=== PATIENT | female | born 1980 | race Caucasian/White ===

== ENCOUNTER 2017-05-24 16:11 | Emergency (ER) | payer OTHER ==
[2017-05-24] MEDS ORDERED: ONDANSETRON DISINTEGRATING 4 MG TAB PO ONE (16:31)
--- NOTE | 2017-05-24 18:01 | EDPHY ---
H & P Smoking Status: Never smoked Time Seen by Provider: 05/24/17 16:23 HPI/ROS: CHIEF COMPLAINT: Head injury HISTORY OF PRESENT ILLNESS: 37-year-old female presents to the emergency department by ambulance after she collided with her skiing and complains especially of a frontal headache as well as pain in her nasal bone. She does not think that she lost consciousness. She complains of severe specially frontal headache. She did have an episode of epistaxis which she was able to control bleeding with firm direct pressure. Denies neck or back pain. Denies chest pain or difficulty breathing. Denies paresthesias in her upper or lower extremities. Denies injury to the upper or lower extremities. Denies back pain. Denies abdominal pain or vomiting. She does feel slightly nauseous. REVIEW OF SYSTEMS: Constitutional: No fever, no chills. Eyes: No double or blurry vision. ENT: Epistaxis as above. No sore throat. Respiratory: No cough, no shortness of breath. Cardiac: No chest pain. Gastrointestinal: Nausea. No abdominal pain, vomiting or diarrhea. Genitourinary: No dysuria. Musculoskeletal: No neck or back pain. Skin: No rashes. Neurological: headache. (Lizett Lozano) Past Medical/Surgical History: Negative (CarrieLizett mccormick M) Social History: Negative (CarrieLizett mccormick M) Physical Exam: General Appearance: Alert, no distress. 37.2, Mentating normally and answering questions appropriately. Eyes: Pupils equal and round. Extraocular motions are all intact. ENT: Mouth: Mucous membranes moist. Tender to palpate left nasal bone. Superficial abrasion to the anterior aspect of the nose. No hemotympanum. No dental injury or malocclusion. Respiratory: No wheezing, rhonchi, or rales, lungs are clear to auscultation. Cardiovascular: Regular rate and rhythm. Gastrointestinal: Abdomen is soft and nontender, no masses, no rebound or guarding, bowel sounds normal. Neurological: Alert and oriented x 3, cranial nerves II through XII grossly intact Skin: Warm and dry, no rashes. Musculoskeletal: Nontender to palpate along the cervical, thoracic or lumbar spine. Neck is supple. Extremities: Full range of motion and no peripheral edema. Psychiatric: Patient is oriented X 3, there is no agitation. (Rosin,Lizett M) Constitutional: Initial Vital Signs Temperature (C) 37.2 C 05/24/17 16:19 Heart Rate 96 05/24/17 16:19 Respiratory Rate 18 05/24/17 16:19 Blood Pressure 103/78 05/24/17 16:19 O2 Sat (%) 97 05/24/17 16:19 O2 Delivery Mode Room Air Allergies/Adverse Reactions: No Known Allergies Allergy (Unverified 05/24/17 16:19) Home Medications: Medication Instructions Recorded NK [No Known Home Meds] 05/24/17 Medical Decision Making ED Course/Re-evaluation: I took over the care of this patient at 5:00 p.m.. We are awaiting results of head CT. 7:05 p.m., results of CT scan of head discussed with the patient. Please see radiologist's report as above. Repeat neurologic Assessment is nonfocal. She feels comfortable going home and I feel she is safe for discharge. I discussed head injury precautions. I discussed ENT follow-up. Return to emergency department precautions were reviewed thoroughly with her. All of her questions were answered. She was discharged in good condition. (Annie Woodson) 37-year-old female presents to the emergency department with closed head injury. The patient complains of severe frontal headache. She feels nauseous. She is photophobic. She is also complaining of pain in her left zygomatic arch area. Clinically I think she likely has a nasal bone fracture. I discussed the pros and cons of CT imaging of her brain including radiation exposure the patient agrees with CT scan. Case will be turned over to Dr. Annie Woodson for CT imaging results and disposition and plan. (Lizett Lozano) Differential Diagnosis: Head injury including but not limited to concussion, skull fracture, intraparenchymal contusion, subarachnoid, subdural and epidural hematoma. (Lizett Loznao) - Data Points Medications Given: Discontinued Medications Ondansetron HCl (Zofran Odt) 4 mg PO EDNOW ONE Stop: 05/24/17 16:32 Last Admin: 05/24/17 16:32 Dose: 4 mg Departure - Departure Disposition: Home, Routine, Self-Care Clinical Impression: Facial contusion Qualifiers: Encounter type: initial encounter Qualified Code(s): S00.83XA - Contusion of other part of head, initial encounter Head injury Qualifiers: Encounter type: initial encounter Qualified Code(s): S09.90XA - Unspecified injury of head, initial encounter Nasal bone fracture Qualifiers: Encounter type: initial encounter Fracture type: closed Qualified Code(s): S02.2XXA - Fracture of nasal bones, initial encounter for closed fracture Condition: Good Instructions: Concussion (ED), Head Injury (ED), Facial Contusion (ED) Additional Instructions: Avoid any activity that might put you at risk for another head injury for at least 1 week Return to the emergency department if he developed recurring headache, vomiting , altered mental status, or if you feel worse in any way. Follow-up with [facility], Dr. Denver Szymanski, or 1 of his partners in the next 2-3 days for re-evaluation. Call their office tomorrow morning for appointment time. Referrals: [facility]LE[facility] LANDRUM [Other] - As per Instructions Denver Szymanski MD [Medical Doctor] - As per Instructions
[2017-05-24 19:08] VITALS: BP 132/64; PULSE 71; RESP 18; TEMP 98.6; O2SAT 98
== END 2017-05-24 19:08 | disposition home or self-care (01) ==
DX: S09.90XA Unspecified injury of head, initial encounter (principal); S00.83XA Contusion of other part of head, initial encounter; S02.2XXA Fracture of nasal bones, initial encounter for closed fracture; V00.328A Other snow-ski accident, initial encounter; Y93.23 Activity, snow (alpine) (downhill) skiing, snowboarding, sledding, tobogganing and snow tubing

== ENCOUNTER 2017-05-27 08:33 | Emergency (ER) | payer OTHER ==
[2017-05-27 08:47] VITALS: PULSE 81; TEMP 97.9
[2017-05-27] MEDS ORDERED: ONDANSETRON DISINTEGRATING 4 MG TAB PO ONE (08:55)
--- NOTE | 2017-05-27 09:44 | EDPHY ---
H & P Stated Complaint: head inj thursday/skiing seen in ed/ct wnl/increasing santiago/n/v - Personal History LMP (Females 10-55): Now Current Tetanus/Diphtheria Vaccine: Yes - Medical/Surgical History Hx Asthma: No Hx Chronic Respiratory Disease: No Hx Diabetes: No Hx Cardiac Disease: No Hx Renal Disease: No Hx Cirrhosis: No Hx Alcoholism: No Hx HIV/AIDS: No Hx Splenectomy or Spleen Trauma: No Other PMH: appy - Social History Smoking Status: Never smoked Time Seen by Provider: 05/27/17 08:56 HPI/ROS: Chief complaint: Headache, nausea and vomiting after head injury History of present illness: This is a 37-year-old female who presents to the emergency department for a headache with associated nausea and vomiting. Patient was seen in this emergency department 3 days ago after crashing while skiing and injuring her head. At that time she underwent a CT scan which showed a nasal bone fracture otherwise unremarkable. She had been doing well until today when she had the onset of a new headache affecting the left frontal aspect of the head and now with nausea and vomiting. This is new from what she has been experiencing over the last few days. She does report she has been home resting quietly. She denies new precipitating factors. She denies other associated signs or symptoms including no other neurologic symptoms including no paresthesias, no weakness or paralysis, no bowel or bladder dysfunction. Review of systems: A 10 point review of systems was obtained and other than described above was negative (Azam Kauffman) - Physical Exam Exam: General Appearance: Alert, nontoxic. Eyes: Pupils equal and round no pallor or injection. ENT, Mouth: Mucous membranes moist. Respiratory: There are no retractions, lungs are clear to auscultation. Cardiovascular: Regular rate and rhythm. Gastrointestinal: Abdomen is soft and non tender, no masses, bowel sounds normal. Neurological: Alert and oriented x4. Cranial nerves 2-12 grossly intact. Strength and sensation intact and symmetrical. Skin: Contusion around the left side of the face. Musculoskeletal: The head is nontender. The spine is nontender. Neck is supple non tender. Extremities are symmetrical, full range of motion. Psychiatric: Patient is oriented X 3, there is no agitation. (Azam Kauffman) Constitutional: Initial Vital Signs Temperature (C) 36.6 C 05/27/17 08:45 Heart Rate 81 05/27/17 08:45 Respiratory Rate 16 05/27/17 08:45 Blood Pressure 101/65 05/27/17 08:45 O2 Sat (%) 98 05/27/17 08:45 O2 Delivery Mode Room Air Allergies/Adverse Reactions: No Known Allergies Allergy (Verified 05/27/17 08:45) Home Medications: Medication Instructions Recorded Ondansetron Odt [Zofran Odt 4 mg 4 mg PO Q4 #10 tab 05/27/17 (*)] Medical Decision Making - Diagnostics Imaging: Discussed imaging studies w/ scallop binder Radiologist ED Course/Re-evaluation: Patient was seen under the supervision of my secondary supervising physician Dr. Lynne Gamboa. Patient presents to the emergency department with a headache and nausea and vomiting after trauma 3 days ago. She did have a CT scan 3 days ago which was negative for acute intracranial findings. However given sudden onset of new type findings with nausea and vomiting I was concerned for delayed bleed and a new CT scan was pursued and negative. Likely postconcussive syndrome. She will be discharged home. Home care is discussed. She is asked to follow up with her primary care doctor and the concussion Clinic. Return precautions are given. (Azam Kauffman) Differential Diagnosis: Included but not limited to post concussive syndrome, concussion, intracranial bleed (Azam Kauffman) Other Provider: The patient was evaluated and managed by the Physician Coating Machine Operator. My co- signature indicates that I have reviewed this chart and I agree with the findings and plan of care as documented. I am the secondary supervising physician. (Lynne Gamboa) - Data Points Medications Given: Discontinued Medications Ondansetron HCl (Zofran Odt) 4 mg PO EDNOW ONE Stop: 05/27/17 08:56 Last Admin: 05/27/17 08:57 Dose: 4 mg Departure - Departure Disposition: Home, Routine, Self-Care Clinical Impression: Post concussion syndrome Condition: Good Instructions: Post Concussion Syndrome (ED) Additional Instructions: Follow-up with your primary care doctor and the concussion Clinic for continued care Use ibuprofen 600 mg 3 times a day for the next 2-3 days for pain control You can use Zofran as directed as needed for nausea and vomiting If symptoms worsen or new symptoms develop return to the emergency room for recheck Referrals: [facility] LANDRUM [Other] - As per Instructions Stand Alone Forms: Work Excuse Prescriptions: Ondansetron Odt [Zofran Odt 4 mg (*)] 4 mg PO Q4 #10 tab
[2017-05-27 10:10] VITALS: BP 99/66; RESP 18; O2SAT 97
== END 2017-05-27 10:39 | disposition home or self-care (01) ==
DX: R51 Headache (principal); F07.81 Postconcussional syndrome

== ENCOUNTER → 2018-07-13 | Outpatient (CLI) | payer OTHER | LOC: FIMAGING 16:10 | PROVIDERS: ATTEND Registered Nurse | DX: D25.9 Leiomyoma of uterus, unspecified (principal) ==